=== PATIENT | female | born 1970 | race Two or more races ===

== ENCOUNTER 2023-01-18 11:28 | Emergency (ER) | payer MEDICAID ==
[~2023-01-18] VITALS: Ht 162.6 cm; Wt 76.1 kg
[2023-01-18] MEDS ORDERED: SODIUM CHLORIDE 0.9% 1,000 ML IV ONE (12:15)
[2023-01-18] MEDS ORDERED: InsuLIN REG 1unit/0.01ml Soln (100units/ml) IV ONE (12:15)
[2023-01-18 12:24] LABS: Urine Bacteria FEW /hpf (None Seen); Urine Blood Negative /uL (Negative); Urine Clarity Clear (Clear); Urine Color Straw (Yellow); Urine Protein, UAD TRACE (Negative); Urine Specific Gravity 1.014 (1.001-1.035); Urine Urobilinogen Normal (Negative); Urine WBC 2 /hpf (0 - 5)
[2023-01-18 13:02] VITALS: PULSE 80
[2023-01-18 13:22] LABS: Basophils # (auto) 0.2 10 ^3/uL (0-0.2); Basophils % (auto) 1.5 % (0.0-2.0); Eosinophils # (auto) 0.2 10 ^3/uL (0-0.8); Eosinophils % (auto) 1.5 % (0.0-7.0); Hemoglobin 13.7 g/dL (12.2-16.2); Lymphocytes # (auto) 2.6 10 ^3/uL (0.4-5.4); Lymphocytes % (auto) 22.4 % (10.0-50.0); Mean Corpuscular Hemoglobin 30.5 pg (28.0-32.0); Mean Corpuscular Hgb Conc. 33.4 g/dL (32.0-36.0); Mean Corpuscular Volume 91.2 fL (80.0-100.0); Monocytes # (auto) 0.7 10 ^3/uL (0-1.3); Monocytes % (auto) 6.2 % (0.0-12.0); Neutrophils # (auto) 7.8 10 ^3/uL (1.6-8.6); Neutrophils % (auto) 68.4 % (37.0-80.0); White Blood Cell 11.4 10^3/uL (4.4-10.8)
[2023-01-18 13:46] LABS: Alanine Aminotransferase 18 U/L (7-40); Albumin 4.2 g/dL (3.2-4.8); Alkaline Phosphatase 107 U/L (46-116); Anion Gap 8.5 (5-15); Aspartate Aminotransferase < 8 U/L (13-40); BUN/Creatinine Ratio 22.2 (10.0-20.0); Blood Urea Nitrogen 22 mg/dL (9-23); Calcium 9.7 mg/dL (8.5-10.1); Carbon Dioxide 21.5 mmol/L (20-30); Chloride 101 mmol/L (98-107); Magnesium 1.7 mg/dL (1.6-2.6); Potassium 5.4 mmol/L (3.5-5.1); Sodium 131 mmol/L (136-145)
[2023-01-18 13:47] LABS: Bilirubin, Total 0.4 mg/dL (0.2-1.0); Total Protein 6.8 g/dL (5.7-8.2)
[2023-01-18 14:08] LABS: Glucose 453 mg/dL (74-106)
[2023-01-18 14:45] VITALS: BP 140/55; PULSE 75; RESP 17; TEMP 98; O2SAT 95
== END 2023-01-18 14:47 | disposition home or self-care (01) ==
LOC: ER 11:28
DX: E11.65 Type 2 diabetes mellitus with hyperglycemia (principal); R06.02 Shortness of breath; Z90.49 Acquired absence of other specified parts of digestive tract; Z98.890 Other specified postprocedural states
CPT/HCPCS: 36415; 71046; 80053; 81001; 83735; 85025; 93005; 96374; 99285; J1815; J7030

== ENCOUNTER 2023-11-27 00:31 | Emergency (ER) | payer MEDICAID ==
[~2023-11-27] VITALS: Ht 154.9 cm; Wt 85.4 kg
[2023-11-27 01:35] LABS: Basophils # (auto) 0.1 10 ^3/uL (0-0.2); Basophils % (auto) 1.1 % (0.0-2.0); Eosinophils # (auto) 0.3 10 ^3/uL (0-0.8); Eosinophils % (auto) 2.1 % (0.0-7.0); Hematocrit 39.1 % (36.0-46.0); Hemoglobin 13.5 g/dL (12.2-16.2); Lymphocytes # (auto) 3.8 10 ^3/uL (0.4-5.4); Lymphocytes % (auto) 30.1 % (10.0-50.0); Mean Corpuscular Hemoglobin 31.2 pg (28.0-32.0); Mean Corpuscular Hgb Conc. 34.5 g/dL (32.0-36.0); Mean Corpuscular Volume 90.4 fL (80.0-100.0); Monocytes % (auto) 7.8 % (0.0-12.0); Neutrophils # (auto) 7.5 10 ^3/uL (1.6-8.6); Neutrophils % (auto) 58.9 % (37.0-80.0); Nucleated Red Blood Cells % 0.1 %; Red Blood Cells 4.33 10^6/uL (4.0-5.20); Red Cell Distribution Width 13.8 % (11.8-14.3); White Blood Cell 12.7 10^3/uL (4.4-10.8)
[2023-11-27 01:52] LABS: Alanine Aminotransferase 17 U/L (7-40); Alkaline Phosphatase 115 U/L (46-116); Anion Gap 6 (5-15); Aspartate Aminotransferase 15 U/L (13-40); BUN/Creatinine Ratio 28.8 (10.0-20.0); Bilirubin, Total 0.3 mg/dL (0.2-1.0); Blood Urea Nitrogen 21 mg/dL (9-23); Calcium 9.5 mg/dL (8.7-10.4); Carbon Dioxide 24 mmol/L (20-30); Chloride 106 mmol/L (98-107); Glucose 213 mg/dL (74-106); Lipase 40 U/L (12-53); Potassium 4.1 mmol/L (3.5-5.1); Sodium 136 mmol/L (136-145); Total Protein 6.9 g/dL (5.7-8.2)
[2023-11-27] MEDS: ONDANSETRON ODT 4 MG TAB PO ONE (02:02)
[2023-11-27] MEDS: DICYCLOMINE HCL (10MG/ML) 2 ML AMPULE IM ONE (02:02)
[2023-11-27 02:07] VITALS: BP 133/62; PULSE 66; RESP 18; TEMP 99.1; O2SAT 97
[2023-11-27] MEDS ORDERED: DICY10CA PO (02:43)
[2023-11-27] MEDS ORDERED: ZOFR4T PO (02:43)
== END 2023-11-27 03:55 | disposition home or self-care (01) ==
LOC: ER 00:31
DX: K52.9 Noninfective gastroenteritis and colitis, unspecified (principal); E11.9 Type 2 diabetes mellitus without complications; E78.5 Hyperlipidemia, unspecified; Z88.0 Allergy status to penicillin; Z90.49 Acquired absence of other specified parts of digestive tract; Z98.891 History of uterine scar from previous surgery
CPT/HCPCS: 36415; 74176; 80053; 83690; 83880; 84484; 85025; 93005; 96372; 99285; J0500; Q0162

== ENCOUNTER 2023-12-23 09:35 | Day surgery (SDC) | payer MEDICAID ==
[2023-12-21 14:17] LABS: Urine Bacteria None Seen /hpf (None Seen)
[2023-12-21 14:28] LABS: Basophils # (auto) 0.1 10 ^3/uL (0-0.2); Basophils % (auto) 0.6 % (0.0-2.0); Eosinophils # (auto) 0.2 10 ^3/uL (0-0.8); Eosinophils % (auto) 2.3 % (0.0-7.0); Hematocrit 39.8 % (36.0-46.0); Hemoglobin 13.2 g/dL (12.2-16.2); Lymphocytes # (auto) 2.3 10 ^3/uL (0.4-5.4); Lymphocytes % (auto) 26.4 % (10.0-50.0); Mean Corpuscular Volume 90.8 fL (80.0-100.0); Monocytes # (auto) 0.7 10 ^3/uL (0-1.3); Monocytes % (auto) 8.1 % (0.0-12.0); Neutrophils # (auto) 5.5 10 ^3/uL (1.6-8.6); Neutrophils % (auto) 62.6 % (37.0-80.0); Platelet Count (auto) 342 10^3/uL (140-450); Red Blood Cells 4.39 10^6/uL (4.0-5.20); Red Cell Distribution Width 13.6 % (11.8-14.3); White Blood Cell 8.7 10^3/uL (4.4-10.8)
[2023-12-21 14:35] LABS: Urine Blood TRACE /uL (Negative); Urine Clarity Clear (Clear); Urine Color Colorless (Yellow); Urine Protein, UAD 1+ (Negative); Urine Specific Gravity 1.006 (1.001-1.035); Urine Urobilinogen Normal (Negative); Urine WBC <1 /hpf (0 - 5); Urine pH 5.5 (5.0-9.0)
[2023-12-21 14:45] LABS: INR 0.98 (0.9-1.15); Partial Thromboplastin Time 29.9 SEC (24.5-34.5); Prothrombin Time 10.4 sec (9.3-11.8)
[2023-12-21 15:04] LABS: Alanine Aminotransferase 23 U/L (7-40); Alkaline Phosphatase 121 U/L (46-116); Anion Gap 3 (5-15); BUN/Creatinine Ratio 17.9 (10.0-20.0); Blood Urea Nitrogen 15 mg/dL (9-23); Calcium 9.5 mg/dL (8.7-10.4); Carbon Dioxide 28 mmol/L (20-30); Chloride 107 mmol/L (98-107); Glucose 239 mg/dL (74-106); Potassium 5.1 mmol/L (3.5-5.1); Sodium 138 mmol/L (136-145)
[2023-12-21 15:05] LABS: Albumin 3.9 g/dL (3.2-4.8); Aspartate Aminotransferase 11 U/L (13-40); Bilirubin, Total 0.3 mg/dL (0.2-1.0)
[~2023-12-23] VITALS: Ht 162.6 cm; Wt 83.0 kg
[~2023-12-23 09:35] MED LIST: INSLISPI SC; LOSA-534 PO
[2023-12-23] MEDS ORDERED: ONDANSETRON HCL 4 MG/2 ML VIAL ONE (12:03)
[2023-12-23] MEDS ORDERED: MIDAZOLAM HCL 2MG/2ML 2ml VIAL (1mg/ml) ONE (12:03)
[2023-12-23] MEDS ORDERED: KETAMINE 50mg/ML 1ml syringe ONE (12:03)
[2023-12-23] MEDS ORDERED: PROPOFOL 10 MG/ML 20 ML IV ONE (12:03)
[2023-12-23] MEDS ORDERED: GLYCOPYRROLATE 0.2 MG/ML 1ML VIAL ONE (12:03)
[2023-12-23 12:15] VITALS: PULSE 70; RESP 23; TEMP 98.8; O2SAT 100
[2023-12-23] MEDS ORDERED: ACCU-CHEK COMFORT CURVE STRIP VI ONE (12:30)
[2023-12-23] MEDS ORDERED: ONDANSETRON HCL 4 MG/2 ML VIAL IV ONE (12:30)
[2023-12-23 13:15] VITALS: BP 149/83; PULSE 66; RESP 18; O2SAT 100
== END 2023-12-23 13:15 | disposition home or self-care (01) ==
LOC: GI 09:35
PROVIDERS: ATTEND Internal Medicine Gastroenterology
DX: Z12.11 Encounter for screening for malignant neoplasm of colon (principal); K64.8 Other hemorrhoids; E11.9 Type 2 diabetes mellitus without complications; I10 Essential (primary) hypertension; Z90.49 Acquired absence of other specified parts of digestive tract; Z98.890 Other specified postprocedural states; Z88.0 Allergy status to penicillin; Z79.4 Long term (current) use of insulin; Z79.899 Other long term (current) drug therapy
CPT/HCPCS: 36415; 45378; 80053; 81001; 82962; 85025; 85610; 85730; J2250; J2405; J2704; J7030

== ENCOUNTER 2024-01-18 15:04 | Emergency (ER) | payer MEDICAID ==
[~2024-01-18] VITALS: Ht 154.9 cm; Wt 82.9 kg
[2024-01-18 16:24] VITALS: BP 123/71; PULSE 91; RESP 18; TEMP 98.7; O2SAT 94
[2024-01-18] MEDS ORDERED: CIPR-173 PO (16:47)
[2024-01-18] MEDS ORDERED: IBUP1TAB5 PO (16:47)
[2024-01-18] MEDS: NEOMYCIN-BACITRACIN-POLYM UNITDOSE PKG TOP OINT TOP ONE (17:04)
== END 2024-01-18 17:28 | disposition home or self-care (01) ==
LOC: ER 15:04
DX: S61.217A Laceration without foreign body of left little finger without damage to nail, initial encounter (principal); E11.9 Type 2 diabetes mellitus without complications; E78.00 Pure hypercholesterolemia, unspecified; Z79.899 Other long term (current) drug therapy; Z90.49 Acquired absence of other specified parts of digestive tract; Z98.890 Other specified postprocedural states; Z88.0 Allergy status to penicillin; W26.0XXA Contact with knife, initial encounter; Y93.89 Activity, other specified; Y92.89 Other specified places as the place of occurrence of the external cause; Y99.8 Other external cause status
CPT/HCPCS: 12001

== ENCOUNTER 2024-01-25 15:01 | Emergency (ER) | payer MEDICAID ==
[~2024-01-25] VITALS: Ht 154.9 cm; Wt 85.7 kg
[~2024-01-25 15:01] MED LIST changes: +CIPR-173 PO; +IBUP1TAB5 PO
[2024-01-25 15:24] VITALS: BP 156/37; PULSE 68; RESP 16; O2SAT 97
== END 2024-01-25 19:24 | disposition home or self-care (01) ==
LOC: ER 15:01
DX: S61.412D Laceration without foreign body of left hand, subsequent encounter (principal); E11.9 Type 2 diabetes mellitus without complications; E78.5 Hyperlipidemia, unspecified; Z48.00 Encounter for change or removal of nonsurgical wound dressing; Z98.890 Other specified postprocedural states; Z88.0 Allergy status to penicillin; Z79.899 Other long term (current) drug therapy; X58.XXXD Exposure to other specified factors, subsequent encounter

== ENCOUNTER 2025-02-13 06:53 | Day surgery (SDC) | payer MEDICAID ==
[~2025-02-13] VITALS: Ht 157.5 cm; Wt 83.0 kg
[~2025-02-13 06:53] MED LIST changes: +ASPI-325 PO; -CIPR-173 PO; -IBUP1TAB5 PO; +INSUINJ2 SC; +TIRZ5INJ SC
[2025-02-13] MEDS: IODIXANOL 320MG/ML 100ML BTL IV ONE (07:22)
[2025-02-13] MEDS: VERAPAMIL 2.5MG/ML INJ 2ML VIAL IV ONE (08:02)
[2025-02-13] MEDS: ANGIOMAX 250 MG VIAL IV ONE (08:02)
[2025-02-13] MEDS: HEPARIN SODIUM (PORCINE) 5000 UNITS/ML 1ML VIAL ONE (08:02)
[2025-02-13] MEDS: fentaNYL CITRATE 100 MCG/2 ML VL ONE (08:02)
[2025-02-13] MEDS: SODIUM CHL 0.9% 0 ML ONE (08:03)
[2025-02-13] MEDS: LIDOCAINE 2%HCL (LOCAL ANESTH.) INJ 20ML MDV ONE (08:03)
[2025-02-13] MEDS: MIDAZOLAM HCL 2MG/2ML 2ml VIAL (1mg/ml) ONE (08:03)
[2025-02-13] MEDS: NITROGLYCERIN 50MG/250ML 250 ML IV ONE (08:06)
--- NOTE | 2025-02-13 08:49 | DVHOP2 ---
Operative Report Procedures performed: Left heart catheterization and bilateral coronary angiogram Moderate sedation Diagnosis: Nonobstructive coronary artery disease Mid to distal LAD became a small-caliber vessel with diffuse disease and component of systolic compression Cardiac suggestion for management: Optimized medical therapy Lifestyle and risk factor modifications Findings: LVEF: 65% LVEDP: 10 mm Hg There was no transaortic valve pressure gradient Left main: Left main was coming off the left sinus of Valsalva. It was free of disease. LAD: LAD was coming off the left main. D1 was a large caliber vessel with no disease. D2 was a medium-sized vessel with no disease. Proximal LAD was free of disease. Mid to distal LAD became small-caliber vessel with diffuse disease and component of systolic compression. LCX: LCX was coming off the left main. OM1 was a very small-caliber vessel. OM2 and OM3 were small to medium-sized vessels. LCX throughout its course and branches was free of disease. RCA: RCA was coming off the right sinus of Valsalva. It was a dominant vessel and provided RPDA/RPLS/RPLB. RCA throughout its course and branches was free of disease. Presentation: Patient is a 55-year-old female who presented to the office with intermittent chest pain and is to go for hysterectomy and ovarian cyst removal. Past medical history includes TIA/CVA, hypertension, hyperlipidemia, diabetes mellitus, obesity, ovarian cyst, uterine fibroid, old history of tubal ligation and history of cholecystectomy. Mother had history of diabetes mellitus. Echocardiogram of November 2024 revealed ejection fraction of 65-70%, borderline concentric left ventricular hypertrophy, normal left atrium size, mild right atrial enlargement, trace MR/PI, [id number] tricuspid regurgitation and right ventricular systolic pressure of 37 mm Hg. Nuclear stress test of November 21, 2024 (performed in the office) was abnormal and the patient was sent for cardiac catheterization. Procedure: After obtaining informed consent, the patient was brought to the can labeler. She was prepped and draped in sterile fashion. Right radial artery was used for access site. 1 mg of Versed and 50 mcg of fentanyl were used for moderate sedation. Using Seldinger technique, the right radial artery was accessed and a 6 Maltese slender sheath was inserted into it. 2.5 mg of verapamil and 100 mcg of nitroglycerin were given as a cocktail into her right radial sheath. 4200 units of heparin was given peripherally. A 5 Maltese tiger 4 diagnostic catheter was used to perform left heart catheterization (obtaining pressures and performing left ventriculography) and bilateral coronary angiography. There was no indication for any transcatheter revascularization. Total bleeding was less than 5 mL. Right radial artery access site was managed by deploying a TR band. There was no dissection/hematoma/perforation. Patient tolerated the procedure with no complication. Fluoroscopy time: 2.6 minutes contrast: 30 mL of Visipaque JOEY NIETO MD Feb 13, 2025 08:49
[2025-02-13 08:50] VITALS: BP 127/51; PULSE 75; RESP 13; TEMP 98.3; O2SAT 94
[2025-02-13 09:05] VITALS: BP 125/48; PULSE 78; RESP 11; O2SAT 95
[2025-02-13 09:20] VITALS: BP 121/53; PULSE 68; RESP 14; O2SAT 93
[2025-02-13 09:35] VITALS: BP 119/56; PULSE 66; RESP 19; O2SAT 94
[2025-02-13 10:05] VITALS: BP 132/60; PULSE 74; RESP 16; O2SAT 95
[2025-02-13 10:35] VITALS: BP 131/64; PULSE 76; RESP 10; O2SAT 96
== END 2025-02-13 10:54 | disposition home or self-care (01) ==
LOC: CATH 06:53
PROVIDERS: ATTEND Internal Medicine Cardiovascular Disease
DX: R07.9 Chest pain, unspecified (principal); I25.10 Atherosclerotic heart disease of native coronary artery without angina pectoris; I11.9 Hypertensive heart disease without heart failure; I07.1 Rheumatic tricuspid insufficiency; E78.5 Hyperlipidemia, unspecified; E66.9 Obesity, unspecified; E11.9 Type 2 diabetes mellitus without complications; N83.209 Unspecified ovarian cyst, unspecified side; Z83.3 Family history of diabetes mellitus; Z86.018 Personal history of other benign neoplasm; Z86.73 Personal history of transient ischemic attack (TIA), and cerebral infarction without residual deficits; Z90.49 Acquired absence of other specified parts of digestive tract; Z90.710 Acquired absence of both cervix and uterus
CPT/HCPCS: 93458; C1769; C1894; J1644; J2250; J3010; J7030; Q9967; 99152

== ENCOUNTER 2025-03-14 10:24 | Emergency (ER) | payer MEDICAID ==
[~2025-03-14] VITALS: Ht 157.5 cm; Wt 83.1 kg
--- NOTE | 2025-03-14 10:55 | ED.PDOC ---
Amie. trauma (HPI) HPI Comments A 55 YEAR OLD FEMALE PRESENTS TO THE ED WITH COMPLAINT OF FALL INJURY. PT STATES SHE WAS ATTEMPTING TO GET INTO [place] AND STATES SHE FELL OVER AND LANDED ON CEMENT FLOOR. PT LANDED ON HER R SHOULDER AND NECK TO HELP BREAK HER FALL. PT DENIES ANY ASSOCIATED HEAD TRAUMA OR ANY LOSS OF CONSCIOUSNESS BUT HAD PAIN AND CAME TO THE ED FOR FURTHER EVALUATION. PATIENT DENIES FEVER, CHILLS, SHORTNESS OF BREATH, CHEST PAIN, ABDOMINAL PAIN, NAUSEA, VOMITING, HEADACHE, OR OTHER COMPLAINTS. NO OTHER SYMPTOMS OR MODIFYING FACTORS AT THIS TIME. PATIENT IS ALERT, ORIENTED X 4, AND HAS STEADY GAIT. Chief Complaint: Neck Pain Time Seen by MD: 10:45 Primary Care Provider: SADIE Reviewed notes: Nurses Notes, Medications, Allergies Allergies: Coded Allergies: Amikacin (Verified Allergy, Unknown, Rash, 02/09/25) Penicillins (Verified Allergy, Unknown, 02/09/25) Home Meds Active Scripts Methocarbamol (Methocarbamol) 750 Mg Tab, 750 MG PO BID, #20 TAB Prov:BRENNA HIDALGO 03/14/25 Ibuprofen (Ibuprofen) 800 Mg Tab, 1 TAB PO TID, #30 TAB Prov:BRENNA HIDALGO 03/14/25 Aspirin (Aspirin Low Dose) 81 Mg Tab, 81 MG PO DAILY for 30 Days, #30 TAB Prov:ZENAIDA KAN RESIDENT 09/19/24 Reported Medications Insulin NPH (Human) (Isophane) (Humulin N) 100 Unit/Ml Inj, 100 UNIT SC DAILY, INJ 02/09/25 Tirzepatide (Mounjaro) 5 Mg/0.5 Ml Inj, 5 MG SC QWEEKLY for EVERY WEDNESDAY, INJ 02/09/25 Losartan Potassium (Losartan Potassium) 50 Mg Tab, 50 MG PO QPM for HTN, TAB 12/22/23 Insulin Lispro (Human) (Humalog) 100 Unit/Ml Inj, 30 UNIT SC UD, INJ sliding scale 12/22/23 Information Source: Patient Mode of Arrival: Ambulatory Brought in by: SELF Severity: Moderate Timing: Hours Duration: Since onset, Days Location: Neck, (R) Shoulder Location of laceration: None Mechanism: Fall Associated signs and symtoms: None Past Medical History PAST MEDICAL HISTORY: DM, High Lipids, HTN Surgical History: Cholecystectomy, Tubal Ligation ORIENTOR History: No Pertinent ORIENTOR History Family History Family History: Reviewed,noncontributory to illness, Unknown Social History Smoker: Non-Smoker Alcohol: Denies ETOH Use Drugs: Denies Drug Use Lives In: Home Constitutional: denies: chills, diaphoresis, fatigue, fever, malaise, sweats, weakness, others EENTM: denies: blurred vision, double vision, ear bleeding, ear discharge, ear drainage, ear pain, ear ringing, eye pain, eye redness, hearing loss, mouth pain, mouth swelling, nasal discharge, nose bleeding, nose congestion, nose pain, photophobia, tearing, throat pain, throat swelling, voice changes, others Respiratory: denies: cough, hemoptysis, orthopnea, SOB at rest, shortness of breath, SOB with excertion, stridor, wheezing, others Cardiovascular: denies: chest pain, dizzy spells, diaphoresis, Dyspnea on exertion, edema, irregular heart beat, left arm pain, lightheadedness, palpitations, PND, syncope, others Gastrointestinal: denies: abdomen distended, abdominal pain, blood streaked bowels, constipated, diarrhea, dysphagia, difficulty swallowing, hematemesis, melena, nausea, poor appetite, poor fluid intake, rectal bleeding, rectal pain, vomiting, others Genitourinary: denies: abnormal vagina bleeding, burning, dyspareunia, dysuria, flank pain, frequency, hematuria, incontinence, pain, , vagina discharge, urgency, others Neurological: denies: dizziness, fainting, headache, left sided numbness, left sided weakness, numbness, paresthesia, pre-existing deficit, right sided numbnes s, right sided weakness, seizure, speech problems, tingling, tremors, weakness, others Musculoskeletal: reports: joint pain, muscle pain, neck pain, others (R SHOULDER PAIN); denies: back pain, gout, joint swelling, muscle stiffness Integumetry: denies: bruises, change in color, change in hair/nails, dryness, laceration, lesions, lumps, rash, wounds, others Allergic/Immunocompromised: denies: Difficulty Healing, Frequent Infections, Hives, Itching, others Hematologic/Lymphatic: denies: anemia, blood clots, easy bleeding, easy bruising, swollen glands, others Endocrine: denies: excessive hunger, excessive sweating, excessive thirst, excessive urination, flushing, intolerance to cold, intolerance to heat, unexplained weight gain, unexplained weight loss, others Psychiatric: denies: anxiety, bipolar disorder, depression, hopeless, panic disorder, schizophrenia, sleepless, suicidal, others All Other Systems: Reviewed and Negative Physical Exam General Appearance: No Apparent Distress, Obese HEENT: Normal ENT Inspection, PERRL/EOMI, Pharynx Normal, TMs Normal Neck: Full Range of Motion, Normal Inspection, Supple, Tender Lateral (AND MUSCLE SPASM ON RIGHT SIDE NECK, NO BONY TENDERNESS, SWELLING AND DEFORMITY. ) Respiratory: Chest Non-Tender, Lungs Clear, No Accessory Muscle Use, No Respiratory Distress, Normal Breath Sounds Cardiovascular: No Edema, No JVD, No Murmur, No Gallop, Normal Peripheral Pulses, Regular Rate/Rhythm Breast Exam: Deferred Gastrointestinal: No Organomegaly, Non Tender, No Pulsatile Mass, Normal Bowel Sounds, Soft Genitalia: Deferred Pelvic: Deferred Rectal: Deferred Extremities: Decreased range of motion, No calf tenderness, Normal capillary refill, No pedal edema, Tender (AND MUSCLE SPASM ON ROIGHT SHOULDER, NO BONY TENDERNESS, SWELLING AND DEFORMITY. ) Musculoskeletal : Apperance: Normal Neurologic: Alert, service superintendent II-XII nml as Tested, No Motor Deficits, Normal Affect, Normal Mood, No Sensory Deficits Cerebellar Function: Normal Reflexes: Normal Skin: Dry, Normal Color, Warm Peripheral Pulses: 2+ carotid (R), 2+ carotid (L) Lymphatic: No Adenopathy Was a procedure done? Was a procedure done?: No Differential Diagnosis Multiple Trauma: Fractures, Vascular Injury, Abrasions Neck Injury: Cervical Muscle Spasm, Cervical Sprain, Cervical Strain, Cervical Fracture X-Ray, Labs, Meds, VS Vital Signs Date Time Temp Pulse Resp B/P (MAP) Pulse Ox O2 Delivery O2 Flow Rate FiO2 03/14/25 11:52 97.9 76 15 180/83 (115) 99 97.9 03/14/25 11:52 76 15 99 Room Air 03/14/25 10:25 97.9 76 15 180/83 99 97.9 Current Medications Medications (Trade) Dose Ordered Sig/Uma Route Start Time Stop Time Status Last Admin Acetaminophen/ Hydrocodone Bitart (Lyon 5/325MG Tab) 1 tab ONCE ONCE PO 03/14/25 10:45 03/14/25 10:46 DC 03/14/25 11:[address] [address] Ph: [phone] DIAGNOSTIC IMAGING Diagnostic Imaging Report : [id number] Signed PATIENT: ALEKSANDER LEHMANCT: [id number] UNIT: [id number] : 1970 LOC: ER ROOM / BED: / AGE / SEX: 55 / F ADM STATUS: REG ER SERVICE 1043 ORDERING PHYSICIAN: BRENNA HIDALGO PROCEDURE(s): RSHD2 - R SHOULDER 2+ VIEW XRAY REASON: FALL ORDER NUMBER(s): [id number], ACCESSION NUMBER(s): [id number] CLINICAL INDICATION: FALL, trauma, pain TECHNIQUE: XY R SHOULDER 2+ VIEW XRAY Comparison: XY CERVICAL SPINE 3V on DOS: 03/14/25, XY CHEST TWO VIEWS ROUTINE on DOS: 01/18/23 FINDINGS/IMPRESSION: : There is no evidence of acute fracture or dislocation. Soft tissues are unremarkable. ATED BY: VICTOR HUGO HINTON MD DICTATED DATE/TIME: 03/14/25 1130 SIGNED BY: VICTOR HUGO HINTON MD SIGNED DATE/TIME: 03/14/25 1130 CC: [place] [id number] Ph: [phone] DIAGNOSTIC IMAGING Diagnostic Imaging Report : [id number] Signed PATIENT: ALEKSANDER LEHMANCT: [id number] UNIT: [id number] : 1970 LOC: ER ROOM / BED: / AGE / SEX: 55 / F ADM STATUS: REG ER SERVICE 1039 ORDERING PHYSICIAN: BRENNA HIDALGO PROCEDURE(s): CERV2 - CERVICAL SPINE 3V REASON: FALL ORDER NUMBER(s): [id number], ACCESSION NUMBER(s): [id number] INDICATION: PAIN; FALL COMPARISON: NONE TECHNIQUE: 5 views of the cervical spine were obtained. FINDINGS: Straightening of the cervical spine. The predental space is normal. Mild multilevel degenerative disc disease of the cervical spine. No acute fracture, vertebral compression deformity or aggressive osseous lesions. The imaged lung apices are unremarkable. IMPRESSION: No acute fracture. ATED BY: PRITI SMITH MD DICTATED DATE/TIME: 03/14/251120 SIGNED BY: PRITI SMITH MD SIGNED DATE/TIME: 03/14/251120 CC: X-Ray, Labs, Meds, VS Comment COURSE: EXTERNAL MEDICAL RECORDS REVIEWED: [NONE] INDEPENDENT HISTORIANS: [NONE] SOCIAL DETERMINANTS OF HEALTH: [NONE] LABS ORDERED: NONE REVIEWED AND INTERPRETED RESULTS: NONE IMAGING ORDERED: R SHOULDER X-RAY, CERVICAL SPINE X-RAY, TREATMENTS ORDERED: NORCO 5/325 1 TAB PO, PROCEDURES PERFORMED: NONE CRITICAL CARE TIME: NONE I HAVE DISCUSSED THE PATIENT WITH THE ATTENDING PHYSICIAN DR. FELIPE AND HE AGREES WITH THE PATIENT'S PLAN OF CARE AND DISPOSITION. BASED ON HISTORY OF PRESENT ILLNESS, AND PHYSICAL EXAM, PATIENT WILL BE DISCHARGED HOME. DISCUSSED PLAN FOR DISCHARGE HOME WITH RX [*MOTRIN AND ROBAXIN *]. MEDICATION WARNINGS GIVEN. SHARED DECISION MAKING: DISCUSSED WITH PATIENT THAT THEIR WORKUP WAS NORMAL. PATIENT INSTRUCTED TO FOLLOW UP WITH PRIMARY CARE PROVIDER IN 1-2 DAYS FOR RE- EVALUATION OF SYMPTOMS. PATIENT VERBALIZES UNDERSTANDING TO RETURN TO ED FOR NEW OR WORSENING SYMPTOMS OR IF FOLLOW UP WITH PCP CANNOT BE OBTAINED. PATIENT FEELS COMFORTABLE GOING HOME AT THIS TIME. ALL QUESTIONS ADDRESSED AT TIME OF DISCHARGE. Time of 1ST Reevaluation: 11:15 Reevaluation 1ST: Improved Patient Education/Counseling: Diagnosis, Treatment Family Education/Counseling: Diagnosis, Treatment Departure 1 Departure Time of Disposition: 12:17 Impression: Primary Impression: Right shoulder strain Qualified Codes: S46.911A - Strain of unspecified muscle, fascia and tendon at shoulder and upper arm level, right arm, initial encounter Additional Impressions: Cervical muscle strain Qualified Codes: S16.1XXA - Strain of muscle, fascia and tendon at neck level, initial encounter Status post fall Disposition: 01 HOME / SELF CARE / HOMELESS Condition: Stable Additional Instructions: INSTRUCTIONS: FOLLOW-UP WITH PCP IN 1 TO 2 DAYS. TAKE MEDICATIONS PRESCRIBED. RETURN TO ED FOR ANY NEW OR WORSENING SYMPTOMS. e-Prescriptions Methocarbamol (Methocarbamol) 750 Mg Tab 750 MG PO BID, #20 TAB Prov: BRENNA HIDALGO 03/14/25 Ibuprofen (Ibuprofen) 800 Mg Tab 1 TAB PO TID, #30 TAB Prov: BRENNA HIDALGO 03/14/25 Discharged With: Self, Relative Critical Care Note Critical Care Time?: No Stability Stability form required: No Heart Score Heart Score: Heart Score Response (Comments) Value History N/A 0 EKG N/A 0 Age N/A 0 Risk Factors N/A 0 Troponin N/A 0 Total 0 I personally scribed for BRENNA HIDALGO ([email or web address]) on 03/14/25 at 10:55. Elec tronically submitted by Harry Eller ([email or web address]). I personally scribed for BRENNA HIDALGO ([email or web address]) on 03/14/25 at 11:37. E lectronically submitted by Harry Eller ([email or web address]). BRENNA HIDALGO Mar 14, 2025 10:55
[2025-03-14] MEDS: HYDROcodone-ACET 5/325MG TAB PO ONE (11:01)
--- NOTE | 2025-03-14 11:24 | DVH ---
INDICATION: PAIN; FALL COMPARISON: NONE TECHNIQUE: 5 views of the cervical spine were obtained. FINDINGS: Straightening of the cervical spine. The predental space is normal. Mild multilevel degenerative disc disease of the cervical spine. No acute fracture, vertebral compression deformity or aggressive osseous lesions. The imaged lung apices are unremarkable. IMPRESSION: No acute fracture.
--- NOTE | 2025-03-14 11:32 | DVH ---
CLINICAL INDICATION: FALL, trauma, pain TECHNIQUE: XY R SHOULDER 2+ VIEW XRAY Comparison: XY CERVICAL SPINE 3V on DOS: 03/14/25, XY CHEST TWO VIEWS ROUTINE on DOS: 01/18/23 FINDINGS/IMPRESSION: : There is no evidence of acute fracture or dislocation. Soft tissues are unremarkable.
[2025-03-14] MEDS ORDERED: IBUP-1456 PO (11:46)
[2025-03-14] MEDS ORDERED: METH-1182 PO (11:46)
[2025-03-14 11:52] VITALS: BP 180/83; PULSE 76; RESP 15; TEMP 97.9; O2SAT 99
== END 2025-03-14 11:53 | disposition home or self-care (01) ==
LOC: ER 10:27
DX: S46.911A Strain of unspecified muscle, fascia and tendon at shoulder and upper arm level, right arm, initial encounter (principal); S16.1XXA Strain of muscle, fascia and tendon at neck level, initial encounter; E11.9 Type 2 diabetes mellitus without complications; I10 Essential (primary) hypertension; Z90.49 Acquired absence of other specified parts of digestive tract; Z98.51 Tubal ligation status; Z88.0 Allergy status to penicillin; W19.XXXA Unspecified fall, initial encounter; Y93.89 Activity, other specified; Y92.89 Other specified places as the place of occurrence of the external cause; Y99.8 Other external cause status
CPT/HCPCS: 72040; 73030

== ENCOUNTER 2025-04-03 11:56 | Inpatient (IN) | payer MEDICAID ==
[~2025-04-03] VITALS: Ht 157.5 cm; Wt 34.2 kg
[~2025-04-03 11:56] MED LIST changes: +IBUP-1456 PO; +METH-1182 PO
--- NOTE | 2025-04-03 12:29 | ED.PDOC ---
History of Present Illness HPI Comments 55 year old female with PMHx HTN, DM, HLD presents to the ED with a chief complaint of LT sided weakness onset 1 day. Patient states she began experiencing LT facial weakness radiating to Lt shoulder, Lt am, yesterday, resolved, began experiencing same symptoms this morning. She is currently experiencing dizziness. Denies fever, chills, chest pain, shortness of breath, nausea, vomiting, head injury. No other symptoms or modifying factors present at this time. Chief Complaint: Left Sided Weakness Time Seen by MD: 12:15 Primary Care Provider: SADIE Carrillo Notes: Medications, Allergies Allergies: Coded Allergies: Amikacin (Verified Allergy, Unknown, Rash, 02/09/25) Penicillins (Verified Allergy, Unknown, 02/09/25) Home Meds Active Scripts Methocarbamol (Methocarbamol) 750 Mg Tab, 750 MG PO BID, #20 TAB Prov:BRENNA HIDALGO 03/14/25 Ibuprofen (Ibuprofen) 800 Mg Tab, 1 TAB PO TID, #30 TAB Prov:BRENNA HIDALGO 03/14/25 Aspirin (Aspirin Low Dose) 81 Mg Tab, 81 MG PO DAILY for 30 Days, #30 TAB Prov:ZENAIDA KAN RESIDENT 09/19/24 Reported Medications Insulin NPH (Human) (Isophane) (Humulin N) 100 Unit/Ml Inj, 100 UNIT SC DAILY, INJ 02/09/25 Tirzepatide (Mounjaro) 5 Mg/0.5 Ml Inj, 5 MG SC QWEEKLY for EVERY WEDNESDAY, INJ 02/09/25 Losartan Potassium (Losartan Potassium) 50 Mg Tab, 50 MG PO QPM for HTN, TAB 12/22/23 Insulin Lispro (Human) (Humalog) 100 Unit/Ml Inj, 30 UNIT SC UD, INJ sliding scale 12/22/23 Information Source: Patient Mode of Arrival: Ambulatory Severity: Moderate Timing: Days Duration: Since onset Prehospital treatment: None Past Medical History PAST MEDICAL HISTORY: DM, High Lipids, HTN Surgical History: Cholecystectomy, Tubal Ligation TRAFFIC SIGN ERECTION SUPERVISOR History: No Pertinent TRAFFIC SIGN ERECTION SUPERVISOR History Family History Family History: Reviewed,noncontributory to illness, Unknown Social History Smoker: Non-Smoker Alcohol: Denies ETOH Use Drugs: Denies Drug Use Lives In: Home Constitutional: denies: chills, diaphoresis, fatigue, fever, malaise, sweats, weakness, others EENTM: denies: blurred vision, double vision, ear bleeding, ear discharge, ear drainage, ear pain, ear ringing, eye pain, eye redness, hearing loss, mouth pain, mouth swelling, nasal discharge, nose bleeding, nose congestion, nose pain, photophobia, tearing, throat pain, throat swelling, voice changes, others Respiratory: denies: cough, hemoptysis, orthopnea, SOB at rest, shortness of breath, SOB with excertion, stridor, wheezing, others Cardiovascular: denies: chest pain, dizzy spells, diaphoresis, Dyspnea on exertion, edema, irregular heart beat, left arm pain, lightheadedness, palpitations, PND, syncope, others Gastrointestinal: denies: abdomen distended, abdominal pain, blood streaked bowels, constipated, diarrhea, dysphagia, difficulty swallowing, hematemesis, melena, nausea, poor appetite, poor fluid intake, rectal bleeding, rectal pain, vomiting, others Genitourinary: denies: abnormal vagina bleeding, burning, dyspareunia, dysuria, flank pain, frequency, hematuria, incontinence, pain, , vagina discharge, urgency, others Neurological: reports: dizziness, left sided weakness; denies: fainting, headache, left sided numbness, numbness, paresthesia, pre-existing deficit, right sided numbness, right sided weakness, seizure, speech problems, tingling, tremors, weakness, others Musculoskeletal: denies: back pain, gout, joint pain, joint swelling, muscle pain, muscle stiffness, neck pain, others Integumetry: denies: bruises, change in color, change in hair/nails, dryness, laceration, lesions, lumps, rash, wounds, others Allergic/Immunocompromised: denies: Difficulty Healing, Frequent Infections, Hives, Itching, others Hematologic/Lymphatic: denies: anemia, blood clots, easy bleeding, easy bruising, swollen glands, others Endocrine: denies: excessive hunger, excessive sweating, excessive thirst, excessive urination, flushing, intolerance to cold, intolerance to heat, unexplained weight gain, unexplained weight loss, others Psychiatric: denies: anxiety, bipolar disorder, depression, hopeless, panic disorder, schizophrenia, sleepless, suicidal, others All Other Systems: Reviewed and Negative Physical Exam General Appearance: Moderate Distress, Normal HEENT: Normal ENT Inspection, Pharynx Normal, TMs Normal Neck: Full Range of Motion, Non-Tender, Normal, Normal Inspection Respiratory: Chest Non-Tender, Lungs Clear, No Accessory Muscle Use, No Respiratory Distress, Normal Breath Sounds Cardiovascular: No Edema, No JVD, No Murmur, No Gallop, Normal Peripheral Pulses, Regular Rate/Rhythm Breast Exam: Deferred Gastrointestinal: No Organomegaly, Non Tender, No Pulsatile Mass, Normal Bowel Sounds, Soft Genitalia: Deferred Pelvic: Deferred Rectal: Deferred Extremities: No calf tenderness, Normal capillary refill, Normal inspection, Normal range of motion, Non-tender, No pedal edema Musculoskeletal : Apperance: Normal Neurologic: Alert, brown stock washer II-XII nml as Tested, No Motor Deficits, Normal Affect, Normal Mood, No Sensory Deficits Cerebellar Function: NOT DONE Reflexes: NOT DONE Skin: Dry, Normal Color, Warm Peripheral Pulses: 3+ Radial (R), 3+ Radial (L) Lymphatic: No Adenopathy Was a procedure done? Was a procedure done?: No EKG EKG : Pulse Rate (adult): 60 Cardiac Rhythm: NSR Differential Dx Considerations may include: TIA Electrolyte imbalance X-Ray, Labs, Meds, VS Vital Signs Date Time Temp Pulse Resp B/P (MAP) Pulse Ox O2 Delivery O2 Flow Rate FiO2 04/03/25 12:29 60 04/03/25 12:00 97.8 75 16 178/109 98 97.8 Lab Test 04/03/25 12:57 Range/Units White Blood Count Pending Red Blood Count Pending Hemoglobin Pending Hematocrit Pending Mean Corpuscular Volume Pending Mean Corpuscular Hemoglobin Pending Mean Corpuscular Hemoglobin Concent Pending Red Cell Distribution Width Pending Platelet Count Pending Mean Platelet Volume Pending Neutrophils (%) (Auto) Pending Lymphocytes (%) (Auto) Pending Monocytes (%) (Auto) Pending Basophils (%) (Auto) Pending Neutrophils # (Auto) Pending Lymphocytes # (Auto) Pending Monocytes # (Auto) Pending Sodium Level Pending Potassium Level Pending Chloride Level Pending Carbon Dioxide Level Pending Anion Gap Pending Blood Urea Nitrogen Pending Creatinine Pending Glomerular Filtration Rate Calc Pending BUN/Creatinine Ratio Pending Serum Glucose Pending Calcium Level Pending Troponin I High Sensitivity Pending Patient alert. Complaining of left side facial numbness dizziness headache. Vitals stable. Answering questions. Blood pressure elevated. Was given clonidine. Has risk factors. EKG reviewed does not show any acute changes. Explained to the patient. Continue monitoring. Time of 1ST Reevaluation: 12:45 Reevaluation 1ST: Unchanged Patient Education/Counseling: Diagnosis, Treatment, Prognosis Family Education/Counseling: No Family Present SEPSIS Sepsis Screen Date sepsis recognized/suspect: Apr 03, 2025 Time Sepsis recognized/suspect: 1204 Recent Procedure: No On Antibiotic Therapy: No Respiratory Rate >20: No Heart Rate >90: No Temp<36 C (96.8 F) or >38.3 C: No SBP <90 or MAP <65 mmHG: No New Acute Mental Status Change: No Is the patient on CPAP, BIPAP,: No Physician Orders Troponin-I Hs (04/03/25 12:02) Complete Blood Count (04/03/25 12:02) Urinalysis (04/03/25 12:02) Basic Metabolic Panel (04/03/25 12:02) Head Without Contrast (04/03/25 12:02) Vital Signs Date Time Temp Pulse Resp B/P (MAP) Pulse Ox O2 Delivery O2 Flow Rate FiO2 04/03/25 12:29 60 04/03/25 12:00 97.8 75 16 178/109 98 97.8 Laboratory Tests Test 04/03/25 12:57 White Blood Count Pending Departure 1 Departure Time of Disposition: 13:30 Impression: Primary Impression: Uncontrolled diabetes mellitus Qualified Codes: E13.65 - Other specified diabetes mellitus with hyperglycemia Additional Impressions: Hypertensive emergency TIA (transient ischemic attack) Disposition: ADMITTED INPATIENT Admit to: Med Surg Condition: Guarded Critical Care Note Critical Care Time?: Yes (90 min-critical care time only) Stability Stability form required: No Heart Score Heart Score: Heart Score Response (Comments) Value History Slightly Suspicious 0 EKG Normal 0 Age 45-64 1 Risk Factors >3 or Hx ASHD 2 Troponin Normal limit 0 Total 3 I personally scribed for PENG MORILLO MD ([email or web address]) on 04/03/25 at 12:29. Electronically submitted by Diana Delvalle ([email or web address]). PENG MORILLO MD Apr 03, 2025 12:29
[2025-04-03 13:26] LABS: Hematocrit 37.2 % (36.0-46.0); Hemoglobin 12.5 g/dL (12.2-16.2); Mean Corpuscular Hemoglobin 30.4 pg (28.0-32.0); Mean Corpuscular Volume 90.2 fL (80.0-100.0); Nucleated Red Blood Cells % 0.0 %
[2025-04-03 13:33] LABS: Chloride 103 mmol/L (98-107); Potassium 4.8 mmol/L (3.5-5.1); Sodium 139 mmol/L (136-145)
[2025-04-03 13:34] LABS: Anion Gap 8 (5-15); Carbon Dioxide 28 mmol/L (20-31)
[2025-04-03 13:35] LABS: Calcium 9.2 mg/dL (8.7-10.4)
[2025-04-03 13:40] LABS: BUN/Creatinine Ratio 30.5 (10.0-20.0); Blood Urea Nitrogen 25 mg/dL (9-23); Glucose 323 mg/dL (74-106)
[2025-04-03 13:59] LABS: Urine Protein, UAD 1+ (Negative)
--- NOTE | 2025-04-03 14:38 | DVH ---
CLINICAL HISTORY: tia TECHNIQUE: Helical scanning was performed of the head from the skull base to the vertex. Multiplanar reconstructions were performed. This exam was performed according to our departmental dose optimization program. Up-to-date CT equipment and radiation dose reduction techniques are utilized as appropriate. CTDI 53 DLP 966 COMPARISON: MRI BRAIN HEAD WO CONTRAST on DOS: 09/18/24, CT HEAD WITHOUT CONTRAST on DOS: 09/17/24 FINDINGS: There is no evidence for acute intracranial hemorrhage, acute ischemic changes, mass, mass effect, or extra-axial fluid collection. There is no hydrocephalus or midline shift. There is no effacement of the cerebral sulci and basal subarachnoid cisterns. The goodwin-white matter differentiation is well maintained. The imaged paranasal sinuses are clear. IMPRESSION: NO ACUTE INTRACRANIAL ABNORMALITY SEEN.
--- NOTE | 2025-04-03 14:41 | ECG ---
[facility] Test Date: 2025-04-03 Test Time: 12:12:59 Pat Name: LAURIE XIE Department: ED Room: 0287T Gender: F Wood Sawyer: JOSE : 1970 Requested By: PENG MORILLO Order Number: [id number] Reading MD: Berry Gipson Measurements Intervals [place] Rate: 68 P: 51 TN: 150 QRS: 53 QRSD: 90 T: 52 QT: 413 QTc: 440 Interpretive Statements Sinus rhythm Low voltage, precordial leads Minimal ST elevation, inferior leads Electronically Signed On 04-04-2025 17:47:45 PST by Berry Gipson Please click the below link to view image of tracing.
[2025-04-03] MEDS: HYDROcodone-ACET 5/325MG TAB PO ONE (17:00)
--- NOTE | 2025-04-03 21:11 | DVHHPRES ---
History of Present Illness Resident Creating Document: PRISCILLA YADAV RESIDENT History of Present Illness Angela Donahue, 55-year-old female with previous history of insulin- dependent diabetes mellitus, hypercholesterolemia, hypertension compliant with medications, coronary artery disease presented to the ER with a history of left- sided eyes and facial numbness and pain since last 3 days. However, the patient does not report any weakness. She reports having chest pain that radiates to the back and jaw but not to the arms. She reports having occasional orthopnea. Past medical history: As above Past surgical history: Salpingectomy, cholecystectomy Home medications: Insulin lispro, insulin Humulin, Mounjaro, losartan 50 mg Allergies: Amikacin, penicillins Denied smoking, alcohol, drugs C Wpf Developer: Dr. Barkley PCP: Dr. Bell Review of Systems Eyes: Pain Allergies: Coded Allergies: Amikacin (Verified Allergy, Unknown, Rash, 02/09/25) Penicillins (Verified Allergy, Unknown, 02/09/25) Medications Current Medications Medications Dose Ordered Sig/Uma Route Start Time Stop Time Status Last Admin Dose Admin Enoxaparin Sodium 40 mg DAILY SC 04/03/25 21:00 UNV Aspirin 81 mg DAILY PO 04/04/25 10:00 UNV Losartan Potassium 50 mg QPM PO 04/04/25 18:00 UNV Exam Vital Signs Vital Signs Date Time Temp Pulse Resp B/P (MAP) Pulse Ox O2 Delivery O2 Flow Rate FiO2 04/03/25 18:33 98.4 69 17 164/92 (116) 95 98.4 Exam Pt is lying on bed General Appearance: Alert, Oriented X3, Cooperative, Mild distress HEENT: Atraumatic, Mucous membranes moist/pink Respiratory: Clear to auscultation, Normal air movement, No added sounds Cardiovascular: Regular rate, Normal S1, Normal S2, No murmurs Abdominal/ : Active bowel sounds, Soft, no distention, no tenderness Extremities: No edema, Normal pulses, No tenderness/swelling Skin: No Significant rash, except past surgical scars Neuro: Normal speech, sensorimotor deficits none Psych/Mental Status: Mental status NL, Mood NL Nurse was there as drugless physician during examination Labs/Xrays Labs Test 04/03/25 13:48 04/03/25 12:57 Range/Units Urine Color Colorless Yellow Urine Clarity Clear Clear Urine pH 5.5 5.0-9.0 Urine Specific [place] 1.006 1.001-1.035 Urine Protein 1+ H Negative Urine Ketones Negative Negative Urine Blood Negative Negative /uL Urine Nitrite Negative Negative Urine Bilirubin Negative Negative Urine Urobilinogen Normal Negative mg/dL Urine Leukocyte Esterase Negative Negative /uL Urine RBC 1 0 - 4 /hpf Urine Microscopic WBC < 1 0-5 /HPF Urine Squamous Epithelial Cells None seen <5 /hpf Urine Bacteria None seen None Seen /hpf Urine Glucose 3+ H Normal mg/dL White Blood Count 10.7 4.4-10.8 10^3/uL Red Blood Count 4.13 4.0-5.20 10^6/uL Hemoglobin 12.5 12.2-16.2 g/dL Hematocrit 37.2 36.0-46.0 % Mean Corpuscular Volume 90.2 80.0-100.0 fL Mean Corpuscular Hemoglobin 30.4 28.0-32.0 pg Mean Corpuscular Hemoglobin Concent 33.7 32.0-36.0 g/dL Red Cell Distribution Width 14.0 11.8-14.3 % Platelet Count 365 140-450 10^3/uL Mean Platelet Volume 8.2 6.9-10.8 fL Neutrophils (%) (Auto) 71.3 37.0-80.0 % Lymphocytes (%) (Auto) 17.8 10.0-50.0 % Monocytes (%) (Auto) 8.2 0.0-12.0 % Eosinophils (%) (Auto) 2.0 0.0-7.0 % Basophils (%) (Auto) 0.7 0.0-2.0 % Neutrophils # (Auto) 7.7 1.6-8.6 10 ^3/uL Lymphocytes # (Auto) 1.9 0.4-5.4 10 ^3/uL Monocytes # (Auto) 0.9 0-1.3 10 ^3/uL Eosinophils # (Auto) 0.2 0-0.8 10 ^3/uL Basophils # (Auto) 0.1 0-0.2 10 ^3/uL Nucleated Red Blood Cells 0.0 % Sodium Level 139 136-145 mmol/L Potassium Level 4.8 3.5-5.1 mmol/L Chloride Level 103 98-107 mmol/L Carbon Dioxide Level 28 20-31 mmol/L Anion Gap 8 5-15 Blood Urea Nitrogen 25 H 9-23 mg/dL Creatinine 0.82 0.550-1.02 mg/dL Glomerular Filtration Rate Calc 84 >90 mL/min BUN/Creatinine Ratio 30.5 H 10.0-20.0 Serum Glucose 323 H 74-106 mg/dL Calcium Level 9.2 8.7-10.4 mg/dL Troponin I High Sensitivity 3 L </=34 ng/L SEPSIS Sepsis Screen Date sepsis recognized/suspect: Apr 03, 2025 Time Sepsis recognized/suspect: 1203 Recent Procedure: No On Antibiotic Therapy: No Respiratory Rate >20: No Heart Rate >90: No Temp<36 C (96.8 F) or >38.3 C: No SBP <90 or MAP <65 mmHG: No New Acute Mental Status Change: No Is the patient on CPAP, BIPAP,: No Physician Orders Admit (04/03/25 20:58) Allergies (04/03/25 20:58) Code Status (04/03/25 20:58) Complete Blood Count (04/04/25 04:00) Comprehensive Metabolic Panel (04/04/25 04:00) Cardiac Diet-2gna,Lofat,Lochol (04/04/25 Breakfast) Enoxaparin Sodium (Lovenox) (04/03/25 21:00) Notify Md Of Changes From Base (04/03/25 20:58) Geology Scientist For 24 Hours (04/03/25 20:58) Carotid Duplx W Color Dop (04/03/25 21:02) Aspirin Enteric Coated Tablet (Ecotrin E (04/04/25 10:00) Losartan Tablet (Cozaar Tablet) (04/04/25 18:00) Insulin Lantus (Glargine) (Lantus) (04/04/25 07:00) Glucose Blood (Accu-Chek Comfort Curve T (04/04/25 00:00) Mild Sliding Scale (04/04/25 00:00) Dextrose 50% Syringe (04/03/25 21:15) Hemoglobin A1c (04/03/25 21:10) Vital Signs Date Time Temp Pulse Resp B/P (MAP) Pulse Ox O2 Delivery O2 Flow Rate FiO2 04/03/25 18:33 98.4 69 17 164/92 (116) 95 98.4 04/03/25 17:00 169/67 11/25/25 16:25 169/97 04/03/25 16:14 68 18 169/97 (121) 96 04/03/25 14:45 98.4 69 18 158/81 (106) 94 98.4 Laboratory Tests Test 04/03/25 12:57 White Blood Count 10.7 10^3/uL (4.4-10.8) Medications Medications Dose Ordered Sig/Uma Route Start Time Stop Time Status Last Admin Dose Admin Acetaminophen/ Hydrocodone Bitart 1 tab ONCE ONCE PO 04/03/25 16:30 04/03/25 16:45 DC 04/03/25 17:00 1 TAB Clonidine HCl 0.1 mg ONCE ONCE PO 04/03/25 16:30 04/03/25 16:45 DC 04/03/25 17:00 0.1 MG Assessment/Plan Assessment/Plan Transient ischemic attack (ABC score 4) Head CT: No acute abnormality Carotid ultrasound: No without evidence of hemodynamically significant CCA or ICA stenosis. Continue aspirin and Plavix Uncontrolled type 2 diabetes mellitus -mild insulin sliding scale -hemoglobin A1c ordered Hypertensive heart disease Losartan 50 mg GI prophylaxis: Pantoprazole DVT prophylaxis: Lovenox Diet: Cardiac Goals of care discussed with the patient for more than 27 minutes: Full code status Case discussed with Dr. Maravilla , patient and RN Plan discussed with: Patient, Other (RN) My Orders Orders - PRISCILLA YADAV RESIDENT Procedure Category Date Status Time Admit ADMIT 04/03/25 Transmitted 20:58 Allergies [facility] 04/03/25 In Process 20:58 Code Status CODE 04/03/25 Transmitted 20:58 Complete Blood Count LAB 04/04/25 Verified 04:00 Comprehensive LAB 04/04/25 Verified Metabolic Panel 04:00 Cardiac DIET 04/04/25 Transmitted Diet-2gna,Lofat,Lochol Breakfast Enoxaparin Sodium PHA 04/03/25 Logged (Lovenox) 21:00 Notify Of Changes [facility] 04/03/25 In Process From Base 20:58 Geology Scientist For [facility] 04/03/25 In Process 24 Hours 20:58 Carotid Duplx W Color US 04/03/25 Logged DOP 21:02 Aspirin Enteric PHA 04/04/25 Logged Coated Tablet 10:00 Losartan Tablet PHA 04/04/25 Logged (Cozaar Tablet) 18:00 Insulin Lantus PHA 04/04/25 Transmitted (Glargine) (Lantus) 07:00 Glucose Blood PHA 04/04/25 Transmitted (Accu-Chek Comfort 00:00 Mild Sliding Scale PHA 04/04/25 Transmitted 00:00 Dextrose 50% Syringe PHA 04/03/25 Transmitted 21:15 Hemoglobin A1c LAB 04/03/25 Transmitted 21:10 Date of Service: Apr 04, 2025 Billing Provider: KATEY MARAVILLA MD Common Visit Codes: [id number] INP/OBS CARE (HIGH) Secondary Visit Codes: [id number] CARE PLAN 30 MINUTES PRISCILLA YADAV RESIDENT Apr 03, 2025 21:11 MEGAN MENDOSA RESIDENT Apr 04, 2025 05:21
[2025-04-03] MEDS ORDERED: DEXTROSE (50%) 50ML SYRG IV PRN (21:15)
[2025-04-03 21:56] LABS: Amphetamine Screen, Urine Neg (NEGATIVE); Barbiturate Scree,Urine Neg (NEGATIVE); Benzodiazephine Screen, Urine Neg (NEGATIVE); Cannabinoid Screen, Urine Neg (NEGATIVE); Cocaine Screen, Urine Neg (NEGATIVE); Opiate Scree,Urine Neg (NEGATIVE); Phencyclidine Screen, Urine Neg (NEGATIVE)
[2025-04-03] MEDS: ENOXAPARIN SOD 40 MG/0.4 ML SYRINGE SC SCH (22:02)
[2025-04-03] MEDS: CLOPIDOGREL BISULFATE 75 MG TAB PO ONE (22:02)
[2025-04-03 22:22] LABS: INR 1.0 (0.9-1.15); Partial Thromboplastin Time 34.7 SEC (24.5-34.5); Prothrombin Time 10.6 sec (9.3-11.8)
--- NOTE | 2025-04-03 22:57 | DVH ---
US CAROTID DOPPLER CLINICAL INDICATION: TIA TECHNIQUE: Multiple grayscale, color Doppler and spectral Doppler ultrasound images were obtained throughout both carotid systems. COMPARISON: US CAROTID DUPLX W COLOR DOP on DOS: 09/17/24 FINDINGS: RIGHT: CCA PSV: 55.5 cm/s ECA PSV: 95.1 cm/s ICA PSV: 82.2 cm/s ICA EDV: 25.7 cm/s ICA/CCA Ratio: 1.5 Vertebral artery: Patent, antegrade flow. Grayscale images demonstrate no significant plaque or visible stenosis. Spectral analysis demonstrates no hemodynamically significant CCA or ICA stenosis. LEFT: CCA PSV: 70.9 cm/s ECA PSV: 98.4 cm/s ICA PSV: 72.5 cm/s ICA EDV: 24.1 cm/s ICA/CCA Ratio: 1.0 Vertebral artery: Patent, antegrade flow. Grayscale images demonstrate no significant plaque or visible stenosis. Spectral analysis demonstrates no hemodynamically significant CCA or ICA stenosis. IMPRESSION: 1. No without evidence of hemodynamically significant CCA or ICA stenosis.
[2025-04-03] MEDS: InsuLIN REG 1unit/0.01ml Soln (100units/ml) SC SCH (23:22)
[2025-04-03] MEDS: ACCU-CHEK COMFORT CURVE STRIP VI SCH (23:22)
[2025-04-03 23:27] VITALS: BP 141/81; PULSE 64; RESP 18; RESP 19; TEMP 98; TEMP 98.1; O2SAT 96
[2025-04-04 01:00] VITALS: BP 116/61; PULSE 68; RESP 18; TEMP 97.8; O2SAT 99
[2025-04-04 05:00] VITALS: BP 134/77; PULSE 66; RESP 18; TEMP 97.6; O2SAT 99
[2025-04-04] MEDS: PANTOPRAZOLE 40 MG TAB PO SCH (05:33)
[2025-04-04] MEDS: INSULIN LANTUS (GLARGINE) 1 /0.01ml (100units/ml) SC SCH (06:12)
[2025-04-04 06:40] LABS: Hematocrit 35.6 % (36.0-46.0); Hemoglobin 12.2 g/dL (12.2-16.2); Mean Corpuscular Hemoglobin 30.7 pg (28.0-32.0); Mean Corpuscular Volume 89.5 fL (80.0-100.0); Nucleated Red Blood Cells % 0.0 %
[2025-04-04 07:00] LABS: Alanine Aminotransferase 14 U/L (7-40); Albumin 3.9 g/dL (3.2-4.8); Alkaline Phosphatase 108 U/L (46-116); Anion Gap 9 (5-15); BUN/Creatinine Ratio 32.5 (10.0-20.0); Calcium 8.9 mg/dL (8.7-10.4); Carbon Dioxide 28 mmol/L (20-31); Chloride 105 mmol/L (98-107); Potassium 4.0 mmol/L (3.5-5.1); Sodium 142 mmol/L (136-145); Total Protein 6.8 g/dL (5.7-8.2)
[2025-04-04 07:01] LABS: Bilirubin, Total 0.4 mg/dL (0.2-1.0)
[2025-04-04 07:02] LABS: Blood Urea Nitrogen 26 mg/dL (9-23); Glucose 205 mg/dL (74-106)
[2025-04-04 08:00] VITALS: PULSE 62; RESP 18; O2SAT 98
[2025-04-04 09:00] VITALS: BP 116/69; PULSE 63; RESP 18; TEMP 97.7; O2SAT 98
[2025-04-04] MEDS: ASPirin-EC 81 mg tab PO SCH (10:32)
[2025-04-04] MEDS: CLOPIDOGREL BISULFATE 75 MG TAB PO SCH (10:32)
--- NOTE | 2025-04-04 12:10 | DVHDS2 ---
Discharge Summary Date of Admission Apr 03, 2025 at 20:58 Date of Discharge: Apr 04, 2025 Admitting Diagnosis Transient ischemic attack (ABC score 4) Uncontrolled type 2 diabetes mellitus Hypertensive heart disease Labs/Diagnostic Data: Laboratory Results Test 04/04/25 08:07 04/04/25 04:37 04/03/25 21:39 04/03/25 13:48 POC Glucose 89 mg/dl (70-106) White Blood Count 10.3 10^3/uL (4.4-10.8) Red Blood Count 3.98 10^6/uL (4.0-5.20) Hemoglobin 12.2 g/dL (12.2-16.2) Hematocrit 35.6 % (36.0-46.0) Mean Corpuscular Volume 89.5 fL (80.0-100.0) Mean Corpuscular Hemoglobin 30.7 pg (28.0-32.0) Mean Corpuscular Hemoglobin Concent 34.3 g/dL (32.0-36.0) Red Cell Distribution Width 14.1 % (11.8-14.3) Platelet Count 340 10^3/uL (140-450) Mean Platelet Volume 8.3 fL (6.9-10.8) Neutrophils (%) (Auto) 68.3 % (37.0-80.0) Lymphocytes (%) (Auto) 21.0 % (10.0-50.0) Monocytes (%) (Auto) 7.9 % (0.0-12.0) Eosinophils (%) (Auto) 2.1 % (0.0-7.0) Basophils (%) (Auto) 0.7 % (0.0-2.0) Neutrophils # (Auto) 7.0 10 ^3/uL (1.6-8.6) Lymphocytes # (Auto) 2.2 10 ^3/uL (0.4-5.4) Monocytes # (Auto) 0.8 10 ^3/uL (0-1.3) Eosinophils # (Auto) 0.2 10 ^3/uL (0-0.8) Basophils # (Auto) 0.1 10 ^3/uL (0-0.2) Nucleated Red Blood Cells 0.0 % Sodium Level 142 mmol/L (136-145) Potassium Level 4.0 mmol/L (3.5-5.1) Chloride Level 105 mmol/L (98-107) Carbon Dioxide Level 28 mmol/L (20-31) Anion Gap 9 (5-15) Blood Urea Nitrogen 26 mg/dL (9-23) Creatinine 0.80 mg/dL (0.550-1.02) Glomerular Filtration Rate Calc 86 mL/min (>90) BUN/Creatinine Ratio 32.5 (10.0-20.0) Serum Glucose 205 mg/dL (74-106) Calcium Level 8.9 mg/dL (8.7-10.4) Total Bilirubin 0.4 mg/dL (0.2-1.0) Aspartate Amino Transferase (AST) 16 U/L (13-40) Alanine Aminotransferase (ALT) 14 U/L (7-40) Alkaline Phosphatase 108 U/L (46-116) Total Protein 6.8 g/dL (5.7-8.2) Albumin 3.9 g/dL (3.2-4.8) Prothrombin Time 10.6 sec (9.3-11.8) Prothrombin Time INR 1.00 (0.9-1.15) Activated Partial Thromboplast Time 34.7 SEC (24.5-34.5) Urine Color Colorless (Yellow) Urine Clarity Clear (Clear) Urine pH 5.5 (5.0-9.0) Urine Specific [place] 1.006 (1.001-1.035) Urine Protein 1+ (Negative) Urine Ketones Negative (Negative) Urine Blood Negative /uL (Negative) Urine Nitrite Negative (Negative) Urine Bilirubin Negative (Negative) Urine Urobilinogen Normal mg/dL (Negative) Urine Leukocyte Esterase Negative /uL (Negative) Urine RBC 1 /hpf (0 - 4) Urine Microscopic WBC < 1 /HPF (0-5) Urine Squamous Epithelial Cells None seen /hpf (<5) Urine Bacteria None seen /hpf (None Seen) Urine Glucose 3+ mg/dL (Normal) Urine Opiates Screen Neg (NEGATIVE) Urine Fentanyl Screen Neg (NEGATIVE) Urine Barbiturates Screen Neg (NEGATIVE) Urine Phencyclidine Screen Neg (NEGATIVE) Urine Amphetamines Screen Neg (NEGATIVE) Urine Benzodiazepines Screen Neg (NEGATIVE) Urine Cocaine Screen Neg (NEGATIVE) Urine Cannabinoids Screen Neg (NEGATIVE) Test 04/03/25 12:57 Hemoglobin A1c 8.6 % A1C (<5.7) Troponin I High Sensitivity 3 ng/L (</=34) Other Laboratory Tests 04/04/25 04:37 Brief Hx & Hospital Course: This is a 55 years old female with past medical history of insulin dependent diabetes, coronary artery disease, hyper lipidemia, hypertension. Per patient she compliant with medication. She came to emergency department because of left-sided and left facial numbness and pain for three days. The patient was admitted. CT scan head showed no acute process. When I see her today the numbness is gone. Patient able to ambulate. No weakness. No slurred speech. No headache. No sign and symptom of acute CVA. The patient also had a carotid ultrasound showed no acute stenosis. So I am discharge the patient home today. Advised the patient to follow up with primary care physician 1-2 weeks. Activity as tolerated. Diet low-salt low-cholesterol carb controlled diet Physical exam: HEENT: Normocephalic atraumatic pupils equal react to light and accommodation. Extraocular muscles intact, conjunctiva pink, oropharynx moist, no thrush, no exudate. Lymphatic: No lymphadenopathy Cardiovascular exam: S1, S2 was heard. No murmurs, rubs, gallops Lung: Clear on auscultation bilaterally, no wheeze, rale, rhonchi. GI: Abdominal soft, nondistended, nontenderness, positive bowel sounds. Extremity: No crepitus, cyanosis, edema. Pedal pulses present bilateral. Full range of motion. Skin: Normal turgor, no rash. Psych: Alert, oriented x3. Neurology: No focal deficits, cranial nerve II to XII grossly intact. This medical document was created using an electronic medical record system with [employer] direct computerized dictation system. Although this document has been carefully reviewed, there may still be some phonetic and typographical errors. These areas are purely typographical due to imperfections of the software programs, and do not reflect any compromise in the patient's medical care. Condition at Discharge: Stable Final Diagnosis/Problems List Transient ischemic attack (ABC score 4) Uncontrolled type 2 diabetes mellitus Hypertensive heart disease Discharge Disposition: Home Discharge Instruct/Medications Scheduled Aspirin (Aspirin Low Dose), 81 MG PO DAILY Ibuprofen (Ibuprofen), 1 TAB PO TID Insulin Lispro (Human) (Humalog), 30 UNIT SC UD, (Reported) Insulin NPH (Human) (Isophane) (Humulin N), 100 UNIT SC DAILY, (Reported) Losartan Potassium (Losartan Potassium), 50 MG PO QPM, (Reported) Methocarbamol (Methocarbamol), 750 MG PO BID Tirzepatide (Mounjaro), 5 MG SC QWEEKLY, (Reported) Discharge Statement: "Patient was advised to return to the ER or call 911 if any headaches, dizziness, shortness of breath, chest pain, abdominal pain, bleeding, fevers, or worsening of medical condition. Patient was counseled about treatment plan, medications, possible side effects, patientverbalized understanding. All questions were answered to the best of my ability. This discharge took greater then 30 minutes in planning, reviewing documentation, counseling the patient, and discussing with other team members." ASSESSMENT ASSESSMENT Assessment Date of Service: Apr 04, 2025 Billing Provider: MARGARETTE FINNEY MD Common Visit Codes: [id number]/OBS DISCH DAY >30min MARGARETTE FINNEY MD Apr 04, 2025 12:10
[2025-04-04 12:56] VITALS: BP 145/66; PULSE 69; RESP 18; TEMP 97.9; O2SAT 96
[2025-04-04 13:25] VITALS: BP 145/66; PULSE 69; RESP 18; TEMP 97.9; O2SAT 96
[2025-04-04] MEDS ORDERED: LOSARTAN POTASSIUM 50 MG TAB PO SCH (18:00)
[2025-04-04] MEDS ORDERED: ATORVASTATIN 20 MG TAB PO SCH (22:00)
== END 2025-04-04 14:30 | disposition home or self-care (01) | DRG 47 ==
LOC: ER 11:56 → OVERFLOW 20:58 → TELE-WESTW 22:48
PROVIDERS: ADMIT Internal Medicine; ATTEND Internal Medicine
DX: G45.9 Transient cerebral ischemic attack, unspecified (principal); I16.0 Hypertensive urgency; E11.65 Type 2 diabetes mellitus with hyperglycemia; I11.9 Hypertensive heart disease without heart failure; E78.00 Pure hypercholesterolemia, unspecified; I25.10 Atherosclerotic heart disease of native coronary artery without angina pectoris; Z88.0 Allergy status to penicillin; Z90.49 Acquired absence of other specified parts of digestive tract; Z98.51 Tubal ligation status; Z79.4 Long term (current) use of insulin
CPT/HCPCS: 36415; 70450; 80048; 80053; 80307; 81001; 82962; 83036; 84484; 85025; 85610; 85730; 93005; 93886; 99291; 99292; G0378; J1815